=== PATIENT | female | born 1960 | race Caucasian/White ===

== ENCOUNTER 2019-10-09 21:12 | Emergency (ER) | payer OTHER ==
[2019-10-09] MEDS ORDERED: Bacitracin Oint 1 GM U/D Packet TOP ONE (21:28)
--- NOTE | 2019-10-09 21:44 | EDM.PDOC ---
ED HPI GENERAL MEDICAL PROBLEM - General Chief Complaint: Laceration Stated Complaint: FISH HOOK RIGHT ARM ABOVE WRIST Time Seen by Provider: 10/09/19 21:30 Source of Information: Reports: Patient, Family History Limitations: Reports: No Limitations - History of Present Illness INITIAL COMMENTS - FREE TEXT/NARRATIVE: 58-year-old female with 1 rohini of a treble hook embedded into the dorsal aspect of her right forearm. No other complaints. Onset: Sudden Duration: Hour(s): (With the last 2 hours) Location: Reports: Upper Extremity, Right Associated Symptoms: Reports: No Other Symptoms - Related Data Allergies Allergy/AdvReac Type Severity Reaction Status Date / Time No Known Allergies Allergy Verified 10/09/19 21:35 Home Meds: Home Meds Escitalopram [Lexapro] 20 mg PO DAILY 10/09/19 [History] Levothyroxine [Synthroid] 100 mcg PO DAILY 10/09/19 [History] Triamterene/Hydrochlorothiazid [Triamterene-HCTZ 37.5-25 MG] 1 tab PO DAILY 10/09/19 [History] ED ROS GENERAL - Review of Systems Review Of Systems: See Below Constitutional: Denies: Fever, Chills Respiratory: Denies: Shortness of Breath Cardiovascular: Denies: Chest Pain Psychiatric: Reports: Anxiety ED EXAM, SKIN/RASH Exam: See Below Exam Limited By: No Limitations General Appearance: Alert, No Apparent Distress, Anxious Respiratory/Chest: No Respiratory Distress Extremities: Other (Right forearm has 1 rohini of a treble hook embedded into the dorsal aspect into the subcutaneous tissue just proximal to the wrist.) Neurological: Alert, Oriented Skin: Warm, Dry Course - Vital Signs Last Recorded V/S: Last Vital Signs Temp 98.3 F 10/09/19 21:32 Pulse 82 10/09/19 21:32 Resp 16 10/09/19 21:32 BP 119/82 10/09/19 21:32 Pulse Ox 98 10/09/19 21:32 - Orders/Labs/Meds Meds: Medications Discontinued Medications Generic Name Dose Route Start Last Admin Trade Name Freq PRN Reason Stop Dose Admin Bacitracin 1 dose 10/09/19 21:28 10/09/19 21:56 Bacitracin Oint 1 Gm TOP 10/09/19 21:29 1 dose ONETIME ONE Administration Lidocaine HCl 5 ml 10/09/19 21:28 10/09/19 21:56 Xylocaine-Mpf 1% INJECT 10/09/19 21:29 5 ml ONETIME ONE Administration - Re-Assessments/Exams Free Text/Narrative Re-Assessment/Exam: 10/09/19 21:43 The area was sterilized with alcohol, infiltrated with a small amount of 1% lidocaine, and the hook removed by countertraction without difficulty. A small amount of bacitracin and a Band-Aid was applied. Departure - Departure Time of Disposition: 21:58 Disposition: Home, Self-Care 01 Clinical Impression: Puncture wound with foreign body - Discharge Information Instructions: Puncture Wound, [id number] Referrals: PCP,None [Primary Care Provider] - Forms: ED Department Discharge Care Plan Goals: Keep wound covered and clean while healing, and recheck if concerns of infection or not healing satisfactorily. Keep fishing. Sepsis Event Note (ED) - Focused Exam Vital Signs: Vital Signs Temp Pulse Resp BP Pulse Ox 10/09/19 21:32 98.3 F 82 16 119/82 98
== END 2019-10-09 21:59 | disposition home or self-care (01) ==
LOC: JP.ED 21:12
DX: S51.841A Puncture wound with foreign body of right forearm, initial encounter (principal); Z79.899 Other long term (current) drug therapy; W45.8XXA Other foreign body or object entering through skin, initial encounter
CPT/HCPCS: 99283; J2001